=== PATIENT | female | born 2000 | race African-American/Black ===

== ENCOUNTER 2021-02-07 20:29 | Emergency (ER) | payer MEDICAID ==
[~2021-02-07] VITALS: Ht 162.6 cm; Wt 68.0 kg
[~2021-02-07 20:29] MED LIST: RISPERDAL; ZOLOFT; [UNRECOGNIZED DRUG - OTHER]
[2021-02-07 21:00] VITALS: BP 148/96
== END 2021-02-07 21:26 | disposition left against medical advice (07) ==
LOC: ER 20:29
DX: Z53.21 Procedure and treatment not carried out due to patient leaving prior to being seen by health care provider (principal)